=== PATIENT | male | born 1975 | race Caucasian/White ===

== ENCOUNTER 2025-07-22 16:39 | Emergency (ER) | payer OTHER ==
[2025-07-22 16:50] VITALS: BMI 32.2
[2025-07-22] MEDS ORDERED: KETOROLAC TROMETHAMINE 30 MG/1 ML VIAL ONE (18:04)
[2025-07-22] MEDS ORDERED: LIDOCAINE 4% PATCH TP ONE (18:04)
[2025-07-22] MEDS ORDERED: ACETAMINOPHEN 500 MG TABLET (FP) ONE (18:04)
[2025-07-22 18:22] VITALS: BP 121/92; PULSE 106; RESP 20; TEMP 98
[2025-07-22] MEDS: LIDOCAINE 4% PATCH TP ONE (18:23)
[2025-07-22] MEDS: KETOROLAC TROMETHAMINE 30 MG/1 ML VIAL IM ONE (18:23)
[2025-07-22] MEDS: ACETAMINOPHEN 500 MG TABLET (FP) PO ONE (18:24)
[2025-07-23] MEDS ORDERED: LIDOCAINE PATCH REMOVAL MC SCH (06:00)
== END 2025-07-22 18:26 | disposition home or self-care (01) ==
LOC: JERFT 16:39 → JER 16:39 → JERFT 18:26
PROC: 3E0233Z Introduction of Anti-inflammatory into Muscle, Percutaneous Approach (ICD-10-PCS; principal; 2025-07-22)
DX: M54.41 Lumbago with sciatica, right side (principal)
CPT/HCPCS: 99284-25